=== PATIENT | female | born 1950 | race Caucasian/White ===

== ENCOUNTER → 2019-01-01 | Outpatient (CLI) | payer MEDICARE ==
[~2019-01-01] MED LIST: ACETAMINOPHEN-1 EAC1 PO; ACETAMINOPHEN650 M5; ASPIR 8181 MG PO; ASPIRIN325; B-121000 MCG; BACTRIM DS TAB1 EACH PO; CIPROFLOXACIN500 M1 PO; DOCUSATE SODIU100 MG; FLAGYL500 MG PO; FOLIC ACID1 MG; GLUCOPHAGE XR500 MG PO; HYDROCODON-ACE1 EAC7 PO; IBUPROFEN 200200 M1 PO; IBUPROFEN 800800 M1 PO; IRON325; KEFLEX500 MG PO; LEVOTHYROXIN0.025 MG PO; MOBIC7.5 MG PO; NORCO 5-325 TA1 EACH; NORCO 5-325 TA1 EACH PO; ONE-A-DAY WOMENS PO; OXYCODONE HCL5 M1; SYNTHROID25 MCG PO; TYLENOL325 MG PO; VITAMIN D 5050000 I1 PO; WOMEN'S 50+ DA1 EACH PO; XANAX 0.5 MG0.5 MG PO; XARELTO10 M1; ZOFRAN ODT4 MG PO
== END ==
LOC: M.RAD 09:01
DX: Z12.31 Encounter for screening mammogram for malignant neoplasm of breast (principal)

== ENCOUNTER 2019-12-15 07:50 | Observation (INO) | payer MEDICARE ==
[2019-12-15] VITALS (8 sets, daily range): BP systolic 129–173; BP diastolic 46–76
[~2019-12-15] VITALS: Ht 157.5 cm; Wt 90.7 kg
[~2019-12-15 07:50] MED LIST changes: -GLUCOPHAGE XR500 MG PO; -LEVOTHYROXIN0.025 MG PO; +METFORMIN HCL500 MG PO; +SYNTHROID50 MCG PO; -VITAMIN D 5050000 I1 PO; +VITAMIN D21250 MCG PO
[2019-12-15 09:01] LABS: HEMOGLOBIN 12.2 gm/dL (12.0-15.0); MCH 30.7 pg (26.0-34.0); MCV 90.3 fL (80.0-100.0); MPV 7.3 fl. (7.2-11.1); RBC 3.99 mil/uL (4.20-5.00); RDW-CV 13.5 % (10.5-14.5); WBC 6.4 thou/uL (4.0-11.0)
[2019-12-15 09:06] LABS: ANION GAP 8 mmol/L (7-16); BUN 11 mg/dL (7-18); CALCIUM 8.5 mg/dL (8.5-10.1); CHLORIDE 105 mmol/L (98-107); CO2 29 mmol/L (21-32); CREATININE 0.6 mg/dL (0.6-1.3); GLUCOSE 136 mg/dL (70-99); POTASSIUM 4.6 mmol/L (3.5-5.1); SODIUM 142 mmol/L (136-145)
[2019-12-15 09:15] LABS: ALBUMIN 3.5 g/dL (3.4-5.0); ALKALINE PHOSPHATASE 87 U/L (46-116); CHOLESTEROL 190 mg/dL (<200); HDL CHOLESTEROL 62 mg/dL (>40); LDL CHOLESTEROL 119 mg/dL (<100); SGOT 18 U/L (15-37); SGPT 26 U/L (30-65); TC:HDL 3.1 Ratio (Not establshd); TOTAL BILIRUBIN 0.4 mg/dL (<0.1-1.0); TOTAL PROTEIN 7.5 g/dL (6.4-8.2); TRIGLYCERIDE 46 mg/dL (<150); VLDL 9 mg/dL (<40)
[2019-12-15 09:18] LABS: SERUM ASSESSMENT Clear
[2019-12-15 10:50] LABS: APTT 25.2 Seconds (25.0-31.3)
--- NOTE | 2019-12-15 14:38 | EKG ---
[place] [address] ELECTROCARDIOGRAM REPORT Name: MIRIAM CHARLES Room: [address] M.R.#: [id number] Admission: 12/15/19 Attend Phys: Real Cochran MD Discharge: Date of : 50 Report #: [id number] THIS REPORT FOR: //name// [facility] Test Date: 2019-12-15 Test Time: 08:57:06 Pat Name: MIRIAM CHARLES Department: Room: [facility] Gender: F Accounts Payable Coordinator: : 1950 Requested By: Brock Cutler Order Number: [id number] Marquise MD: Real Cochran Measurements Intervals [place] Rate: 72 P: 49 [place]: 147 QRS: 6 QRSD: 78 T: 20 QT: 391 QTc: 428 Interpretive Statements Sinus rhythm Consider RVH or posterior infarct Compared to ECG 04/17/2016 10:32:22 Myocardial infarct finding now present Electronically Signed On 12-15-2019 14:37:58 AVIATION TECHNICAL SYSTEMS SPECIALIST by Real Cochran [email or web address] <ELECTRONICALLY SIGNED> By: Real Cochran MD, [facility] 12/15/19 1437 0857 0857 Real Cochran MD, [facility] /EPI
--- NOTE | 2019-12-15 14:41 | EKG ---
[place] [address] ELECTROCARDIOGRAM REPORT Name: MIRIAM CHARLES Room: [address] M.R.#: [id number] Admission: 12/15/19 Attend Phys: Real Cochran MD Discharge: Date of : 50 Report #: [id number] THIS REPORT FOR: //name// [facility] Test Date: 2019-12-15 Test Time: 13:30:22 Pat Name: MIRIAM CHARLES Department: Room: [facility] Gender: F Hosting Engineer: JUAN : 1950 Requested By: Real Cochran Order Number: [id number] Reading MD: Real Cochran Measurements Intervals [place] Rate: 66 P: 65 [place]: 147 QRS: 6 QRSD: 90 T: 2 QT: 412 QTc: 432 Interpretive Statements Sinus rhythm Abnormal R-wave progression, early transition Compared to ECG 04/17/2016 10:32:22 No significant changes Electronically Signed On 12-15-2019 14:41:00 ROLL TABLE OPERATOR by Real Cochran [email or web address] <ELECTRONICALLY SIGNED> By: Real Cochran MD, [facility] 12/15/19 1441 1330 29 Real Cochran MD, FACC /EPI
--- NOTE | 2019-12-15 16:04 | H ---
[address] [address] HISTORY AND PHYSICAL Name: MIRIAM CHARLES Tammy Room: [address] MSamuelRSamuel#: [id number] Admission: 12/15/19 Attend Phys: Real Cochran MD Discharge: Date of : 50 Report #: [id number] THIS REPORT FOR: //name// CC: Cruz Cutler DATE OF SERVICE: 12/15/2019 HISTORY OF PRESENT ILLNESS: The patient is a very pleasant 68-year-old female with diabetes. She has noted exertional chest pressure and pain between her shoulder blades. In this context, stress Cardiolite was ordered, and the patient walked for 6 minutes of a Anurag protocol, noting chest discomfort and dyspnea. She developed 1-1.[address] segment depression suggesting ischemia in the post-exercise phase and radionuclide scans revealed anteroapical ischemia. She has noted some diminution in her symptoms after backing off on her activity pattern. The patient's risk factors for coronary artery disease include diabetes. She denies hypercholesterolemia, hypertension, or family history of premature coronary artery disease. MEDICATIONS: Included aspirin, L-thyroxine, metformin which she has held for 48 hours, and a multivitamin. PAST MEDICAL HISTORY: Remarkable for diabetes, hypothyroidism, and weight excess. SOCIAL HISTORY: She is . She is a former smoker, but no longer does. REVIEW OF SYSTEMS: Remarkable for the following: GENERAL: She notes modest weight excess. ENDOCRINE: There is a history of treated hypothyroidism. MUSCULOSKELETAL: She notes exertional chest discomfort and dyspnea. PHYSICAL EXAMINATION: GENERAL: Reveals a moderately overweight middle-aged female. VITAL SIGNS: Blood pressure is 140/70, pulse rate is 68, and respirations are 18 per minute. NECK: Jugular venous pressure is normal. CHEST: Clear. CARDIAC: Exam reveals normal first and second heart sounds without rubs, murmurs, or gallops. ABDOMEN: Moderately obese. EXTREMITIES: Without edema with intact femoral, pedal, [place] [address] HISTORY AND PHYSICAL Name: MIRIAM CHARLES Room: [address] M.R.#: [id number] Admission: 12/15/19 Attend Phys: Real Cochran MD Discharge: Date of : 50 Report #: [id number] Review of the nuclear stress test demonstrates inducible anteroapical ischemia with concomitant ST-T changes suggesting ischemia. IMPRESSION: 1. Recent episodes of angina with exertion. 2. Abnormal nuclear stress test with a significant area of inducible anteroapical ischemia with concomitant EKG changes suggesting ischemia. 3. Diabetes mellitus. 4. Weight excess. 5. Hypothyroidism. RECOMMENDATIONS: Given the aforementioned clinical scenario with symptoms suggesting angina, which have been progressive, and abnormal nuclear stress test, I would recommend proceeding with cardiac catheterization to document the magnitude of coronary artery disease and prospects for subsequent therapeutic modification. <ELECTRONICALLY SIGNED> By: Brock Cutler MD, [facility] 12/15/19 1604 1137 1151John Jigar Cutler MD, [facility] /nt
--- NOTE | 2019-12-15 17:36 | H ---
[place] [address] HISTORY AND PHYSICAL Name: ROSAAnahyMIRIAM Tammy Room: [address] MSamuelRSamuel#: [id number] Admission: 12/15/19 Attend Phys: Real Cochran MD Discharge: Date of : 50 Report #: [id number] THIS REPORT FOR: //name// CC: Cruz Cutler DATE OF SERVICE: 12/15/2019 INDICATION: Progressive/unstable angina. HISTORY OF PRESENT ILLNESS: The patient is a very pleasant 69-year-old female with no prior cardiac history. Cardiac risk factors include dyslipidemia and type 2 diabetes mellitus. The patient has been having progressive symptoms of chest pressure, shortness of breath, dyspnea, fatigue and back pain. She had recently rejoined a gym where she noticed these symptoms for the past couple of months. The patient underwent noninvasive stress testing, but showed evidence of stress-induced ischemia involving the distal anterior wall and apex. She has preserved left ventricular systolic function. She denies any prior history of myocardial infarction or intervention. PAST MEDICAL HISTORY: 1. Type 2 diabetes mellitus. 2. Hypothyroidism. 3. Partial hysterectomy in 2015. 4. Total knee arthroplasty in 2011. SOCIAL HISTORY: The patient quit smoking remotely. She does not drink alcohol. FAMILY HISTORY: The patient's parents both had coronary artery disease, but lived to older ages. ALLERGIES: MOBIC. CURRENT MEDICATIONS: Aspirin 81 mg daily, vitamin D 1000 units daily, levothyroxine 50 mcg daily, metformin 1000 mg b.i.d., multivitamin 1 tablet daily. REVIEW OF SYSTEMS: The patient denies convulsions, seizures or focal paralysis. In general, there is no unexplained weight loss or fevers. She denies cough, sputum production or underlying lung disease. Cardiac as outlined above. She is not having nausea, vomiting, hematochezia or melena. She has hypothyroidism and diabetes. No prior history of bleeding disorder or cancer. 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 She denies any skin conditions. She wears glasses without acute visual loss. She [place] [address] HISTORY AND PHYSICAL Name: MIRIAM CHARLES Room: [address]#: [id number] Admission: 12/15/19 Attend Phys: Real Cochran MD Discharge: Date of : 50 Report #: [id number] PHYSICAL EXAMINATION: VITAL SIGNS: Stable. Blood pressure was 142/76, pulse is 62 and regular. GENERAL: This is a pleasant lady in no distress. Mood and affect appropriate. HEENT: The patient is wearing glasses. Extraocular muscles intact. Mucous membranes moist. NECK: Shows no jugular venous distention. There are no carotid bruits. CHEST: Reveals clear lung beltran without wheezes or rales. CARDIOVASCULAR: Reveals a regular rhythm with normal S1 and S2. I do not appreciate gallop or murmur. ABDOMEN: Reveals normal bowel sounds. The abdomen is soft and nontender. EXTREMITIES: Shows no edema. Peripheral pulses 2+ and easily palpable. SKIN: Dry. IMPRESSION AND RECOMMENDATIONS: 1. Chest pain consistent with progressive/unstable angina. We will proceed with invasive evaluation and possible intervention. 2. Diabetes. Resume metformin 2 days after catheterization. 3. Mild dyslipidemia. Recommend initiation of statin agent for goal LDL of 70 or less. 4. Hypothyroidism, on replacement therapy. <ELECTRONICALLY SIGNED> By: Real Cochran MD, FACC 12/15/19 1736 0950 1011Miccrispin Cochran MD, FACC /nt
[2019-12-16] VITALS: BP 132/64
[2019-12-16 03:44] VITALS: BP 123/51
[2019-12-16 05:28] LABS: HEMOGLOBIN 11.7 gm/dL (12.0-15.0); MCHC 34.3 g/dL (28.0-37.0); MCV 90.3 fL (80.0-100.0); MPV 7.9 fl. (7.2-11.1); RBC 3.77 mil/uL (4.20-5.00); RDW-CV 13.2 % (10.5-14.5); WBC 6.8 thou/uL (4.0-11.0)
[2019-12-16 06:28] LABS: ALBUMIN 3.2 g/dL (3.4-5.0); CALCIUM 8.5 mg/dL (8.5-10.1); CREATININE 0.6 mg/dL (0.6-1.3); TOTAL BILIRUBIN 0.5 mg/dL (<0.1-1.0); TOTAL PROTEIN 7.1 g/dL (6.4-8.2)
[2019-12-16 08:00] VITALS: BP 152/61
[2019-12-16 09:06] VITALS: BP 129/46
[2019-12-16 12:19] VITALS: BP 143/74
[2019-12-16] MEDS ORDERED: EFFIENT10 MG PO (12:30)
[2019-12-16] MEDS ORDERED: LIPITOR 20 MG T20 M1 PO (12:31)
--- NOTE | 2019-12-16 15:04 | EKG ---
[place] [address] ELECTROCARDIOGRAM REPORT Name: MIRIAM CHARLES Room: [address] M.R.#: [id number] Admission: 12/15/19 Attend Phys: Real Cochran MD Discharge: 12/16/19 Date of : 50 Report #: [id number] THIS REPORT FOR: //name// [facility] Test Date: 2019-12-16 Test Time: 08:09:04 Pat Name: MIRIAM TRINHVIVAnahy Department: Room: [facility] Gender: F Hose Operator: : 1950 Requested By: Real Cochran Order Number: [id number] Reading MD: Brock Cutler Measurements Intervals [place] Rate: 78 P: 43 [place]: 146 QRS: 0 QRSD: 77 T: 29 QT: 373 QTc: 425 Interpretive Statements Sinus rhythm Abnormal R-wave progression, early transition Compared to ECG 12/15/2019 13:30:22 No significant changes Electronically Signed On 12-16-2019 15:03:22 MANAGER ORACLE RETAIL by Brock Cutler [email or web address] <ELECTRONICALLY SIGNED> By: Brock Cutler MD, [facility] 12/16/19 1503 0809 0809 Brock Cutler MD, FACC /EPI
--- NOTE | 2019-12-17 14:40 | CARD ---
[address] [address] CARDIAC CATH REPORT Name: ROSAMIRIAM Higginbotham Room: [address] Anabel Pathak#: [id number] Admission: 12/15/19 Attend Phys: Real Cochran MD Discharge: 12/16/19 Date of : 50 Report #: [id number] THIS REPORT FOR: //name// APPROVED REPORT Study performed: 12/15/2019 11:14:22 Patient Details The patient is a 69 year-old female Event Personnel Real Cochran Field Pipelines Supervisor, Sergei Tilley POTASH FLAKER Monitor, Jadon Abraham POTASH FLAKER Scrub, Gabriella Garvey RN RN, Brock Cutler Director Consumer Affairs Procedures Performed Left heart catheterization Selective coronary arteriography and percutaneous coronary intervention to the LAD Indication Positive stress test Risk Factors Hypercholesterolemia, Hypertension Admission/Lab Medications/Medications given during procedure Angiomax IV 13.5 ml, Angiomax Drip IV 31.51 ml per hr Procedure Narrative The patient was brought electively to the Cardiac Catheterization Laboratory and was prepped and draped in a sterile manner. The right femoral was infiltrated with 2% Lidocaine subcutaneous anesthesia. A 6fr Ultimum Sheath sheath was inserted into the right femoral artery. Coronary angiography was performed using coronary diagnostic catheters. The right coronary system was accessed and visualized with a Diagnostic - JR4 catheter. The left coronary system was accessed and visualized with a Diagnostic - JL4 catheter. The left ventricle was accessed and visualized with a Diagnostic - Staight PIG catheter. Closure device was deployed with a Fr Angioseal STS 6Fr. The patient tolerated the procedure well and there were no complications associated with the procedure. Intraoperative Conscious Sedation Sedation start time: 1154 Case end Time: 1259 [place] [address] CARDIAC CATH REPORT Name: MIRIAM CHARLES Room: [address]#: [id number] Admission: 12/15/19 Attend Phys: Real Cochran MD Discharge: 12/16/19 Date of : 50 Report #: [id number] Fentanyl 50 mcg Versed 1 mg Fluoro Time: 22.3 minutes Dose: DAP 496125 cGycm2 2575 mGy Contrast Type and Amount: Visipaque 240 ml Coronary Angiography The patient's coronary anatomy is left dominant. Diagnostic Cath Left Main 0% narrowing LAD 40% ostial narrowing with 90% heavily calcified proximal stenosis and 75% mid vessel stenosis Circumflex 40% tubular mid vessel narrowing Right Coronary Small nondominant vessel with 50% proximal narrowing Hemodynamics The aortic pressure is 152/60 mmHg with a mean of 101 mmHg. The left ventricular pressure is 146/0 mmHg with a mean of mmHg. The left ventricular end diastolic pressure is 22 mmHg. PCI Technique Lesion Anticoagulation was achieved with Angiomax. Patient was preloaded with Angiomax Drip IV 31.51 ml per hr. Percutaneous coronary intervention was performed on the proximal left anterior descending artery segment. The lesion stenosis prior to intervention was 90% with HANNAH 3 flow. A 6F XB LAD 3.5 Guide Catheter was used to engage the ostium. A IG: BMW 300cm Interventional Guidewire was used to cross the lesion. BALLOON DILATION A Balloon catheter Mini Trek RX 1.5 X 8 was inserted and inflated up to 18.00atm for 11seconds. Additional Inflation: 18.00atm for 11seconds. Finecross and Telescope utilized STENT DEPLOYMENT A drug-eluting stent Hamzah RX Stent 2.11V61xy was inserted and inflated up to 14atm for 15seconds. POST STENT DEPLOYMENT BALLOON DILATION A Balloon catheter NC Trek RX 2.5 X 8 was inserted and inflated up to 18atm for 10seconds. COMMENTS The intervention was complex by virtue of severe [place] [address] CARDIAC CATH REPORT Name: MIRIAM CHARLES Room: [address]#: [id number] Admission: 12/15/19 Attend Phys: Real Cochran MD Discharge: 12/16/19 Date of : 50 Report #: [id number] proximal LAD lesion requiring use of a telescope guide in a guide system required for traversing the lesion with a 1.5 x 8 mini trek catheter larger balloons and subsequently a drug-eluting stent BALLOON DILATION A Balloon catheter was inserted and inflated up to 14atm for 14seconds. Additional Inflation: 18.00atm for 12seconds. Additional Inflation: 14.00atm for 7seconds. 14 greg for 12 sec STENT DEPLOYMENT A stent Cascade RX Stent 2.37U90ni was inserted and inflated up to 14.00atm for 15seconds. Additional Inflation: 14.00atm for 8seconds. POST STENT DEPLOYMENT BALLOON DILATION A Balloon catheter NC Trek RX 2.5 X 8 was inserted and inflated up to 16.00atm for 12seconds. Additional Inflation: 18.00atm for 5seconds. Additional Inflation: 14.00atm for 8seconds. 12 greg for 4 sec Conclusion #1 significant coronary artery disease characterized by the following: A 40% ostial 90% heavily calcified proximal and 75% mid LAD stenosis B 40% tubular mid circumflex narrowing C small nondominant right coronary artery with 50% proximal narrowing #2 moderate elevation of left ventricular end-diastolic pressure at rest #3 successful percutaneous coronary intervention with deployment of drug-eluting stent spanning 90% heavily calcified proximal and 75% mid LAD stenoses with 10% residual narrowing and HANNAH-3 flow to the distal vessel Recommendations Cardiac Risk Reduction Program Aggressive Medical Therapy Medic[place] [address] CARDIAC CATH REPORT Name: MIRIAM CHARLES Room: [address] Anabel Pathak#: [id number] Admission: 12/15/19 Attend Phys: Real Cochran MD Discharge: 12/16/19 Date of : 50 Report #: [id number] Aspirin (any) Prasugrel Diagnostic Cath Approved by: Real Cochran MD Date/Time: 12/17/2019 14:36:54 <ELECTRONICALLY SIGNED> By: Brock Cutler MD, FACC 12/17/19 1440 1440 1440Jolele Cutler MD, FACC /INF
--- NOTE | 2019-12-18 13:45 | D ---
[facility] [address] [place] [address] DISCHARGE SUMMARY Name: MIRIAM CHARLES Room: [address] Anabel Pathak#: [id number] Admission: 12/15/19 Attend Phys: Real Cochran MD Discharge: 12/16/19 Date of : 50 Report #: [id number] THIS REPORT FOR: //name// CC: Cruz Cochran DATE OF SERVICE: 12/16/2019 PROCEDURES DURING HOSPITALIZATION: 1. Cardiac catheterization. 2. Coronary angiography. 3. Percutaneous coronary intervention to the proximal to mid left anterior descending coronary artery. HOSPITAL COURSE: The patient was brought to the hospital for elective coronary angiography after an abnormal stress test. On catheterization, she was found to have sequential 90% and 80% proximal to mid left anterior descending stenoses. The patient underwent percutaneous coronary intervention with a single 34 mm drug-eluting stent placed from the proximal to mid left anterior descending coronary artery with excellent result. The patient had mild nonocclusive plaquing noted, otherwise. The patient's hospital course was unremarkable. DISPOSITION: The patient will follow up on 12/29/2019 in the Cardiology office. DISCHARGE MEDICATIONS: 1. Aspirin 81 mg daily. 2. Effient 10 mg daily. 3. Levothyroxine 50 mcg daily. 4. Atorvastatin 20 mg daily. 5. Metformin 1000 mg b.i.d. 6. Multivitamin 1 tablet daily. 7. Vitamin D 1000 units daily. <ELECTRONICALLY SIGNED> By: Real Cochran MD, FACC 12/18/19 1345 1237 1248Miccrispin Cochran MD, FACC /nt
== END 2019-12-16 13:22 | disposition home or self-care (01) ==
LOC: M.CL 07:50 → M.TBA-CV 13:11 → M.2W 16:50
PROVIDERS: Internal Medicine; ADMIT Internal Medicine Cardiovascular Disease
DX: I20.9 Angina pectoris, unspecified (principal); E03.9 Hypothyroidism, unspecified; E11.9 Type 2 diabetes mellitus without complications; R63.5 Abnormal weight gain; Z87.891 Personal history of nicotine dependence

== ENCOUNTER 2021-02-19 07:26 | Inpatient (IN) | payer MEDICARE ==
[~2021-02-19] VITALS: Ht 157.5 cm; Wt 83.3 kg
[~2021-02-19 07:26] MED LIST changes: +EFFIENT10 MG PO; +LIPITOR 20 MG T20 M1 PO
[2021-02-19 07:35] VITALS: BP 191/72
[2021-02-19 08:12] LABS: CALCIUM 8.8 mg/dL (8.5-10.1); CREATININE 0.5 mg/dL (0.6-1.3); POTASSIUM 4.1 mmol/L (3.5-5.1)
[2021-02-19 08:17] LABS: ALBUMIN 3.8 g/dL (3.4-5.0); TOTAL BILIRUBIN 0.7 mg/dL (<0.1-1.0)
[2021-02-19 08:20] LABS: ABSOLUTE LYMPHOCYTES 1.7 thou/uL (0.8-5.3); BASOPHILS 0.3 %; HEMOGLOBIN 11.9 gm/dL (12.0-15.0); PLATELET COUNT* 345 thou/uL (150-400); RBC 4.01 mil/uL (4.20-5.00); RDW-CV 14.3 % (10.5-14.5)
[2021-02-19 08:22] LABS: ABSOLUTE MONOCYTES 0.4 thou/uL (0.0-1.2); ABSOLUTE NEUTROPHILS 3.8 thou/uL (1.6-8.1); EOSINOPHILS 0.4 %; HEMATOCRIT 36.2 % (37.0-47.0); LYMPHOCYTES 28.5 %; MCH 29.7 pg (26.0-34.0); MCV 90.1 fL (80.0-100.0); MONOCYTES 7.1 %; MPV 7.3 fl. (7.2-11.1); NUCLEATED RBCS 0 /100WBC; POLYS 63.7 %
[2021-02-19 10:57] VITALS: BP 138/69
[2021-02-19 16:30] VITALS: BP 164/65
[2021-02-19 20:14] VITALS: BP 129/53
[2021-02-20] VITALS (15 sets, daily range): BP systolic 103–157; BP diastolic 50–77
[2021-02-20 05:32] LABS: CHOLESTEROL 106 mg/dL (<200); HDL CHOLESTEROL 57 mg/dL (>40); LDL CHOLESTEROL 39 mg/dL (<100); SERUM ASSESSMENT CLEAR; TC:HDL 1.9 Ratio (Not establshd); TRIGLYCERIDE 54 mg/dL (<150); TROPONIN-I LEVEL <0.06 ng/mL (<0.06); VLDL 11 mg/dL (<40)
--- NOTE | 2021-02-20 10:41 | CON ---
[address] [address] CONSULTATION Name: ARACELIMIRIAM M Room: [address] M.R.#: [id number] Admission: 02/20/21 Attend Phys: Maris Blandon MD Discharge: Date of : 50 Report #: [id number] THIS REPORT FOR: cc: [facility] - Clinic physician unknown [facility] - Clinic physician unknown ~ Cruz Tripathi MD [facility] DATE OF SERVICE: 02/19/2021 CARDIOLOGY CONSULTATION HISTORY OF PRESENT ILLNESS: The patient a 70-year-old female who I was asked to see in the hospital today after she complained of back pain. The patient states that a year ago, she was having some back pain and was admitted to [facility]. She had a single coronary stent placed. She has done well since that time. Apparently, this year, they stopped the antiplatelet drug because it has been 1 year since the stent was placed. She is not very active at this time. She was doing well until this morning, she woke up with pain in her back. She felt somewhat nauseated and vomited. She felt somewhat diaphoretic. She drove herself to the Emergency Room and admitted for further evaluation and treatment. She notes she has had the back pain off and on. She denied any trauma to her back. The pain is not related to lifting, bending over. Denied any fever or cough. She denied the pain radiating to her arms. She denies any exertional dyspnea, palpitations, or syncope. PAST MEDICAL HISTORY: In September, she fell and fractured her left leg requiring surgery. She has had both knees replaced appendectomy, hysterectomy, hypertension, diabetes, hyperlipidemia. CURRENT MEDICATIONS: Consists of the following list: She is on Synthroid, aspirin, metformin, atorvastatin. She is no longer on Effient. ALLERGIES: SHE HAS A PREVIOUS INTOLERANCE TO MOBIC. FAMILY HISTORY: Her mother had heart disease. SOCIAL HISTORY: She is . She lives in [place]. No smoking or alcohol abuse. REVIEW OF SYSTEMS: She has had no history of stroke, asthma, liver disease, kidney disease, cancer or skin problems, psychiatric illness. She does wear glasses. PHYSICAL EXAMINATION: GENERAL: Revealed an elderly female, who appeared [place] [address] CONSULTATION Name: MIRIAM CHARLES Room: [address]#: [id number] Admission: 02/20/21 Attend Phys: Maris Blandon MD Discharge: Date of : 50 Report #: [id number] VITAL SIGNS: She had a blood pressure of 130/70, pulse 60. She is afebrile. HEENT: She was anicteric. Conjunctivae pink. Mucous membranes are moist. NECK: Veins nondistended. No carotid bruits. Neck supple. CHEST: Clear to auscultation. CARDIOVASCULAR: Regular rate without murmur or rub. ABDOMEN: Soft. EXTREMITIES: Had no edema. Dorsalis pedis pulse 2+. SKIN: Cool and dry. NEUROLOGIC: Nonfocal. LABORATORY DATA: ECG showed a sinus rhythm without ST- or T-wave change noted. Her workup in the Emergency Room today, sodium 135, potassium 4.1, creatinine 0.5, glucose 118. Her liver function studies were normal. Troponins were all 0.06. BNP was not performed. Her white blood cell count 6.0, hemoglobin 11.9. The patient had a CT scan of the chest using a PE protocol today that showed no pulmonary embolus. Her chest x-ray showed normal heart size, clear lung beltran. IMPRESSION AND RECOMMENDATIONS: 1. Back pain. Possible angina. Recommend repeat cardiac catheterization. 2. Previous stent. Recommend repeat cardiac catheterization. I would continue aspirin a day. 3. Hypertension. Recommend medications including NICOLE inhibitor. 4. Hyperlipidemia. The patient is on a statin drug. 5. Diabetes. The patient is on oral medications. <ELECTRONICALLY SIGNED> By: Cruz Tripathi MD, FACC 02/20/21 1041 1216 1235Davianiket Tripathi MD, FACC /nt
--- NOTE | 2021-02-20 14:11 | 2DMMODE ---
[place] [address] 2 D/M-MODE ECHOCARDIOGRAM Name: MIRIAM CHARLES Room: [address] IN [facility]#: [id number] Admission: 02/20/21 Attend Phys: Maris Blandon, Discharge: Date of : 50 Date of Service: 02/20/21 1411 Report #: [id number] THIS REPORT FOR: cc: [facility] - Clinic physician unknown [facility] - Clinic physician unknown Brock Cutler MD [facility] ~ APPROVED REPORT Study performed: 02/20/2021 10:25:25 EXAM: Comprehensive 2D, Doppler, and color-flow Echocardiogram Patient Location: In-Patient Room #: [facility] Status: routine BSA: 1.78 HR: 70 bpm BP: 112/52 mmHg Rhythm: NSR Other Information Study Quality: Good Indications Chest Pain 2D Dimensions IVSd: 10.85 (7-11mm) LVOT Diam: 18.87 (18-24mm) LVDd: 42.30 mm PWd: 10.05 (7-11mm) Ascending Ao: 31.21 (22-36mm) LVDs: 24.71 (25-40mm) Aortic Root: 28.67 mm Volumes Left Atrial Volume (Systole) LA ESV Index: 27.80 mL/m2 Aortic Valve AoV Peak Jae.: 1.77 m/s AO Peak Gr.: 12.48 mmHg LVOT Max P.36 mmHg AO Mean Gr.: 6.98 mmHg LVOT Mean P.57 mmHg LVOT Max V: 1.36 m/s AO V2 VTI: 35.85 cm LVOT Mean V: 0.87 m/s FABIENNE (VTI): 2.30 cm2 LVOT V1 VTI: 29.42 [place] [address] 2 D/M-MODE ECHOCARDIOGRAM Name: MIRIAM CHARLES Room: [address] IN ..#: [id number] Admission: 02/20/21 Attend Phys: Maris Blandon, Discharge: Date of : 50 Date of Service: 02/20/21 1411 Report #: [id number] Mitral Valve E/A Ratio: 1.02 MV Decel. Time: 234.13 ms MV E Max Jae.: 0.90 m/s MV PHT: 67.90 ms MVA (PHT): 3.24 cm2 TDI E/Lateral E': 8.18 E/Medial E': 9.00 Medial E' Jae.: 0.10 m/s Lateral E' Jae.: 0.11 m/s Pulmonary Valve PV Peak Jae.: 0.85 m/s PV Peak Gr.: 2.87 mmHg Tricuspid Valve RAP Estimate: 5.00 mmHg TR Peak Gr.: 24.30 mmHg RVSP: 29.00 mmHg PA Pressure: 29.00 mmHg Left Ventricle The left ventricle is normal size. There is normal LV segmental wall motion. There is normal left ventricular wall thickness. Left ventricular systolic function is normal. The left ventricular ejection fraction is within the normal range. LVEF is 60-65%. The left ventricular diastolic function is normal. Right Ventricle The right ventricle is normal size. The right ventricular systolic function is normal. Atria The left atrium size is normal. The right atrium size is normal. Aortic Valve The aortic valve is normal in structure. No aortic regurgitation is present. There is no aortic valvular stenosis. Mitral Valve The mitral valve is normal in structure. Trace mitral regurgitation. No evidence of mitral valve stenosis. Tricuspid Valve The tricuspid valve is normal in structure. Mild tricuspid regurgitation. [place] [address] 2 D/M-MODE ECHOCARDIOGRAM Name: ZIGGYKADYMIRIAM Munoz Room: [address] [place] [facility]#: [id number] Admission: 02/20/21 Attend Phys: Maris Blandon, Discharge: Date of : 50 Date of Service: 02/20/21 1411 Report #: [id number] Pulmonic Valve The pulmonary valve is normal in structure. Trace pulmonic regurgitation. Great Vessels The aortic root is normal in size. IVC is normal in size and collapses >50% with inspiration. Pericardium There is no pericardial effusion. <Conclusion> The left ventricle is normal size. There is normal left ventricular wall thickness. Left ventricular systolic function is normal. The left ventricular ejection fraction is within the normal range. LVEF is 60-65%. The right ventricle is normal size. The left atrium size is normal. The aortic valve is normal in structure. The mitral valve is normal in structure. The tricuspid valve is normal in structure. Mild tricuspid regurgitation. No pulmonary hypertension. IVC is normal in size and collapses >50% with inspiration. There is no pericardial effusion. There is normal LV segmental wall motion. <ELECTRONICALLY SIGNED> By: Brock Cutler MD, FACC 02/20/21 141 10 10 Brock Cutler MD, FACC /INF
--- NOTE | 2021-02-20 17:32 | EKG ---
[place] [address] ELECTROCARDIOGRAM REPORT Name: MIRIAM CHARLES Room: [address] IN M.R.#: [id number] Admission: 02/20/21 Attend Phys: Maris Blandon, Discharge: Date of : 50 Date of Service: 02/19/21 0746 Report #: [id number] THIS REPORT FOR: //name// [facility] ED Test Date: 2021-02-19 Test Time: 07:46:04 Pat Name: MIRIAM TRINHKADY Department: Room: [facility] Gender: F Title Checker: JSunil : 1950 Requested By: Joauqin Hernandez Order Number: [id number] MD: Brock Cutler Measurements Intervals [place] Rate: 60 P: 40 NM: 154 QRS: 6 QRSD: 84 T: 17 QT: 407 QTc: 407 Interpretive Statements Sinus rhythm Low voltage, precordial leads Abnormal R-wave progression, early transition LVH by voltage Compared to ECG 12/16/2019 08:09:04 Low QRS voltage now present Left ventricular hypertrophy now present Electronically Signed On 02-20-2021 17:32:29 CDT by Brock Cutler [email or web address] <ELECTRONICALLY SIGNED> By: Brock Culter MD, [facility] 02/20/21 1732 0746 Brock Cutler MD, [facility] /EPI
--- NOTE | 2021-02-20 17:33 | EKG ---
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1885 : 1950 Requested By: Maris Blandon Order Number: [id number] Reading MD: Brock Cutler Measurements Intervals [place] Rate: 54 P: 54 WV: 152 QRS: 44 QRSD: 90 T: 48 QT: 450 QTc: 427 Interpretive Statements Sinus rhythm Low voltage, precordial leads Compared to ECG 02/19/2021 07:46:04 Left ventricular hypertrophy no longer present Electronically Signed On 02-20-2021 17:33:34 CDT by Brock Cutler [email or web address] <ELECTRONICALLY SIGNED> By: Brock Cutler MD, [facility] 02/20/21 1733 1246 1246 Brock Cutler MD, [facility] /EPI
--- NOTE | 2021-02-20 17:36 | EKG ---
[place] [address] ELECTROCARDIOGRAM REPORT Name: MIRIAM CHARLES Room: [address] ADM IN M.R.#: [id number] Admission: 02/20/21 Attend Phys: Maris Blandon, Discharge: Date of : 50 Date of Service: 02/20/21 0847 Report #: [id number] THIS REPORT FOR: //name// 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: : 1950 Requested By: Cruz Tripathi Order Number: [id number] Reading MD: Brock Cutler Measurements Intervals [place] Rate: 77 P: 46 MA: 143 QRS: 8 QRSD: 81 T: 24 QT: 376 QTc: 426 Interpretive Statements Sinus rhythm Abnormal R-wave progression, early transition Compared to ECG 02/19/2021 12:46:29 No significant changes Electronically Signed On 02-20-2021 17:36:20 CDT by Brock Cutler [email or web address] <ELECTRONICALLY SIGNED> By: Brock Cutler MD, [facility] 02/20/21 1736 0847 0847 Brock Cutler MD, [facility] /EPI
[2021-02-21] VITALS: BP 130/58
[2021-02-21 04:09] VITALS: BP 139/52
[2021-02-21 04:46] LABS: ALBUMIN 2.8 g/dL (3.4-5.0); ALKALINE PHOSPHATASE 75 U/L (46-116); ANION GAP 9 mmol/L (7-16); BUN 5 mg/dL (7-18); CHLORIDE 110 mmol/L (98-107); CO2 24 mmol/L (21-32); CREATININE 0.4 mg/dL (0.6-1.3); GLUCOSE 85 mg/dL (70-99); MAGNESIUM 1.8 mg/dL (1.8-2.4); POTASSIUM 3.2 mmol/L (3.5-5.1); SGOT 20 U/L (15-37); SGPT 23 U/L (30-65); SODIUM 143 mmol/L (136-145); TOTAL BILIRUBIN 0.7 mg/dL (<0.1-1.0); TOTAL PROTEIN 6.3 g/dL (6.4-8.2); TROPONIN-I LEVEL <0.06 ng/mL (<0.06)
[2021-02-21 04:51] LABS: HEMATOCRIT 28.7 % (37.0-47.0); MCH 30.5 pg (26.0-34.0); MCV 89.6 fL (80.0-100.0); MPV 7.5 fl. (7.2-11.1); RBC 3.2 mil/uL (4.20-5.00); RDW-CV 14.1 % (10.5-14.5); WBC 5.8 thou/uL (4.0-11.0)
[2021-02-21 04:58] LABS: HEMOGLOBIN 9.8 gm/dL (12.0-15.0)
[2021-02-21 07:58] VITALS: BP 143/82
[2021-02-21] MEDS ORDERED: BENAZEPRIL HCL5 MG PO (08:30)
[2021-02-21] MEDS ORDERED: EFFIENT10 MG PO (08:30)
[2021-02-21 11:20] VITALS: BP 143/82
[2021-02-21 12:03] VITALS: BP 143/82
--- NOTE | 2021-02-21 13:03 | EKG ---
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: [id number] : 1950 Requested By: Brock Cutler Order Number: [id number] Reading MD: Brock Cutler Measurements Intervals [place] Rate: 77 P: 26 DC: 139 QRS: 18 QRSD: 78 T: 43 QT: 382 QTc: 433 Interpretive Statements Sinus rhythm Abnormal R-wave progression, early transition Compared to ECG 02/20/2021 08:47:11 No significant changes Electronically Signed On 02-21-2021 13:03:03 CDT by Brock Cutler [email or web address] <ELECTRONICALLY SIGNED> By: Brock Cutler MD, [facility] 02/21/21 1303 0531 0531 Brock Cutler MD, [facility] /EPI
--- NOTE | 2021-02-21 13:49 | CARD ---
[address] [address] CARDIAC CATH REPORT Name: MIRIAM CHARLES Room: [address]#: [id number] Admission: 02/20/21 Attend Phys: Maris Blandon MD Discharge: 02/21/21 Date of : 50 Report #: [id number] THIS REPORT FOR: cc: [facility] - Clinic physician unknown [facility] - Clinic physician unknown ~ Brock Cutler MD [facility] APPROVED REPORT Study performed: 02/20/2021 15:57:57 Patient Details Patient Status: In-Patient Room #: The patient is a 70 year-old female Event Personnel Brock Cutler Recruit Instructor, Joselin Cruz RN Tapeman, Sergei Tilley SECURITY SME Scrub, Lisseth Samuel RTShane Monitor Procedures Performed Art Access - R femoral artery , Left Heart Cath w/or w/o Coronaries LHC , GORDY Place w/wo Plasty Single LAD , Hemostasis w/ Angioseal Indication Unstable angina Risk Factors Hypercholesterolemia Previous Procedures/Diagnoses Previous PCI Admission/Lab Medications/Medications given during procedure Angiomax IV 13 ml, Angiomax Drip IV 29.05 ml per hr, Angiomax Drip IV 4 ml per hr, Effient PO 60 mg, Aspirin PO 162 mg Procedure Narrative The patient was brought electively to the Cardiac Catheterization Laboratory and was prepped and draped in a sterile manner. The right femoral was infiltrated with 2% Lidocaine subcutaneous anesthesia. IV conscious sedation was used throughout procedure with appropriate monitoring and was performed in the presence of a registered nurse who was an independent trained observer other than the physician performing the procedure. A [place] 6 [place] [address] CARDIAC CATH REPORT Name: MIRIAM CHARLES Room: [address]#: [id number] Admission: 02/20/21 Attend Phys: Maris Blandon MD Discharge: 02/21/21 Date of : 50 Report #: [id number] the right femoral artery. Coronary angiography was performed using coronary diagnostic catheters. The right coronary system was accessed and visualized with a 6F 3DRC catheter. The left coronary system was accessed and visualized with a 6F JL4 catheter. The left ventricle was accessed and visualized with a 6F Pigtail catheter. Left ventricular/Aortic Valve gradient assessed via catheter pullback. Left ventriculogram was performed in OROZCO projection. Pre-demployment femoral angiogram was performed . Closure device was deployed with a 6 Fr Angioseal STS. The patient tolerated the procedure well and there were no complications associated with the procedure. There was no hematoma. Intraoperative Conscious Sedation Sedation start time: 16:22 Case end Time: 17:09 Fentanyl 25 mcg Versed 2 mg Fluoro Time: 8.1 minutes Dose: DAP 88047 cGycm2 997 mGy Contrast Type and Amount: Omnipaque 200 ml Diagnostic Cath LAD 30% ostial narrowing with 90% proximal in-stent restenosis and 30% mid vessel narrowing Circumflex Large dominant vessel with 40% mid vessel narrowing Right Coronary Small nondominant vessel which appears normal Left Ventriculography The left ventricle is normal in size with normal contractility. The left ventricular ejection fraction is estimated to be 65%. Left ventricular wall motion abnormalities are not present. There is no mitral insufficiency. Hemodynamics The aortic pressure is 96/44 mmHg with a mean of 64 mmHg. The left ventricular pressure is 97/-2 mmHg with a mean of mmHg. The left ventricular end diastolic pressure is 5 mmHg. There was no gradient across the aortic valve upon pullback. PCI Technique Lesion Anticoagulation was achieved with Angiomax. Patient was preloaded with Angiomax IV 13 ml. Percutaneous coronary intervention was performed on the proximal left anterior descending artery segment. The lesion stenosis prior to intervention was 90% with HANNAH 3 flow. A 6FR XB LAD 3.5 Guide Catheter was used to engage [place] [address] CARDIAC CATH REPORT Name: MIRIAM CHARLES Room: [address] IN M.R.#: [id number] Admission: 02/20/21 Attend Phys: Maris Blandon MD Discharge: 02/21/21 Date of : 50 Report #: [id number] 190cm Interventional Guidewire was used to cross the lesion. BALLOON DILATION A Balloon catheter NC Euphora 2.5x8 was inserted and inflated up to 18.00atm for 9seconds. Additional Inflation: 20.00atm for 7seconds. STENT DEPLOYMENT A drug-eluting stent Hamzah RX Stent 2.25X8mm was inserted and inflated up to 18.00atm for 10seconds. Additional Inflation: 21.00atm for 7seconds. Additional Inflation: 22.00atm for 5seconds. Final angiography reveals 0 % stenosis with HANNAH 3 flow. Conclusion 1. Significant coronary artery disease characterized by the following: A 30% ostial LAD stenosis with 90% proximal in-stent restenosis and 30% mid vessel narrowing B 40% narrowing in the midportion of the large dominant circumflex C normal small nondominant right coronary artery 2. Normal left ventricular systolic function, estimated ejection fraction being 65% 3. Normal left-sided hemodynamic study 4. Successful PCI with deployment of a drug-eluting stent at the site of 90% focal proximal LAD in-stent restenosis with 0% residual narrowing and HANNAH-3 flow to the distal vessel Recommendations Cardiac Risk Reduction Program Aggressive Medical Therapy Medications Administered Aspirin (any) [place] [address] CARDIAC CATH REPORT Name: MIRIAM CHARLES Room: [address] IN M.R.#: [id number] Admission: 02/20/21 Attend Phys: Maris Blandon MD Discharge: 02/21/21 Date of : 50 Report #: [id number] Diagnostic Cath Approved by: Brock Cutler MD Date/Time: 02/21/2021 13:47:55 <ELECTRONICALLY SIGNED> By: Brock Cutler MD, [facility] 02/21/21 1349 1349 1349Jolele Cutler MD, FAC /INF
== END 2021-02-21 12:40 | disposition home or self-care (01) | DRG 247 ==
LOC: M.ERS 07:26 → M.TBA-ER 09:51 → M.2W 11:22
PROVIDERS: Emergency Medicine; Internal Medicine Cardiovascular Disease; ADMIT Internal Medicine; ATTEND Internal Medicine
PROC: 027034Z Dilation of Coronary Artery, One Artery with Drug-eluting Intraluminal Device, Percutaneous Approach (ICD-10-PCS; principal; 2021-02-20)
PROC: B2151ZZ Fluoroscopy of Left Heart using Low Osmolar Contrast (ICD-10-PCS; principal; 2021-02-20)
PROC: 4A023N7 Measurement of Cardiac Sampling and Pressure, Left Heart, Percutaneous Approach (ICD-10-PCS; principal; 2021-02-20)
PROC: B2111ZZ Fluoroscopy of Multiple Coronary Arteries using Low Osmolar Contrast (ICD-10-PCS; principal; 2021-02-20)
DX: I25.119 Atherosclerotic heart disease of native coronary artery with unspecified angina pectoris (principal); T82.855A Stenosis of coronary artery stent, initial encounter; E11.9 Type 2 diabetes mellitus without complications; I10 Essential (primary) hypertension; E03.9 Hypothyroidism, unspecified; E78.5 Hyperlipidemia, unspecified; Y83.8 Other surgical procedures as the cause of abnormal reaction of the patient, or of later complication, without mention of misadventure at the time of the procedure; Z96.652 Presence of left artificial knee joint; Z20.822 Contact with and (suspected) exposure to COVID-19; Z82.49 Family history of ischemic heart disease and other diseases of the circulatory system; Z90.711 Acquired absence of uterus with remaining cervical stump; Z79.82 Long term (current) use of aspirin; Z79.899 Other long term (current) drug therapy; Z95.5 Presence of coronary angioplasty implant and graft; Z90.49 Acquired absence of other specified parts of digestive tract; I25.2 Old myocardial infarction; Z88.8 Allergy status to other drugs, medicaments and biological substances; Y92.89 Other specified places as the place of occurrence of the external cause

== ENCOUNTER 2021-02-28 14:11 | Inpatient (IN) | payer MEDICARE ==
[~2021-02-28] VITALS: Ht 157.5 cm; Wt 76.7 kg
[~2021-02-28 14:11] MED LIST changes: +BENAZEPRIL HCL5 MG PO
[2021-02-28 14:16] VITALS: BP 169/86
[2021-02-28 14:44] LABS: ABSOLUTE MONOCYTES 0.5 thou/uL (0.0-1.2); ABSOLUTE NEUTROPHILS 5.5 thou/uL (1.6-8.1); BASOPHILS 0.3 %; EOSINOPHILS 0.5 %; HEMATOCRIT 32.4 % (37.0-47.0); LYMPHOCYTES 24.9 %; MCH 30.6 pg (26.0-34.0); MCHC 33.8 g/dL (28.0-37.0); MCV 90.5 fL (80.0-100.0); MONOCYTES 6.6 %; MPV 7.2 fl. (7.2-11.1); NUCLEATED RBCS 0 /100WBC; PLATELET COUNT* 351 thou/uL (150-400); POLYS 67.7 %; RBC 3.58 mil/uL (4.20-5.00); RDW-CV 14.5 % (10.5-14.5); WBC 8.1 thou/uL (4.0-11.0)
[2021-02-28 14:55] LABS: APTT 23.5 Seconds (25.0-31.3); CALCIUM 9.1 mg/dL (8.5-10.1); CREATININE 0.6 mg/dL (0.6-1.3); POTASSIUM 3.9 mmol/L (3.5-5.1); PROTIME 10.2 Seconds (9.20-11.50)
[2021-02-28 15:20] LABS: ALBUMIN 3.4 g/dL (3.4-5.0); TOTAL BILIRUBIN 0.6 mg/dL (<0.1-1.0); TOTAL PROTEIN 7.5 g/dL (6.4-8.2)
[2021-02-28] MEDS ORDERED: EFFIENT10 MG PO (16:19)
--- NOTE | 2021-02-28 17:03 | EKG ---
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
[2021-02-28 17:18] VITALS: BP 134/63
[2021-02-28 17:30] VITALS: BP 152/67
--- NOTE | 2021-02-28 19:06 | NUR ---
RECEIVED REPORT AT BEDSIDE FROM ER,RN. PT ARRIVED ON UNIT AT 1730. IV INTACT RIGHT FOREARM. HEART MONITOR ATTACHED AT SR. PT SAT UP FOR WHILE IN CHAIR. LYING IN BED. PT BROKE LEG THIS PAST SEPTEMBER. FALL BRACELET PLACED ON PT. UP STAND BY ASSIST. MEDS GIVEN PER JAN. HOURLY ROUNDING PERFORMED. ADMIT DONE IN CHAIR. VS STABLE. PT SAID CHEST PAIN A "1/2 A 1". NPO AT MIDNIGHT. NO CAFFIENE,TEA,CHOCOLATE,COFFEE. CALL LIGHT WITHIN REACH. WILL CONTINUE TO MONITOR.
[2021-02-28 19:25] VITALS: BP 160/71
[2021-03-01 00:08] VITALS: BP 122/62
--- NOTE | 2021-03-01 03:55 | NUR ---
ASSUMED CARE OF PT AT 1900. PT IS ALERT AND OREINTED. TERRIE. PT REPORTED CHEST PAIN AT THE BEGINNING OF THE SHIFT. PT RECIEVED MORPHINE. PT IS NPO FOR CARDIOLOGY. PT IS SINUS RYTHM ON THE TELEMETRY. PT IS RESTING COMFORTABLY IN BED. RESPIRATIONS ARE EVEN AND NONLABORED. WILL CONTINUE TO MONITOR PT.
[2021-03-01 04:15] VITALS: BP 144/74
[2021-03-01 08:00] VITALS: BP 141/67
--- NOTE | 2021-03-01 11:52 | NUR ---
Pt is A&O. Resides at home with . Independent. Pt uses a cane for mobility. Hx of [facility] HH. No hx of SNF. Pt to have stress test today. Anticipate dc to home tomorrow, no needs anticipated.
[2021-03-01 12:06] VITALS: BP 145/55
--- NOTE | 2021-03-01 13:15 | NUR ---
ASSUMED PT CARE AT 0730, PT AOX4, C/O HEADACHE TREATED W/ TYLENOL W/ SOME RELIEF. PT ALLOWED TO EAT BREAKFAST PER STRESS LAB BUT NOW NPO AGAIN FOR STRESS TEST THIS AFTERNOON. PT GOAL IS TO COMPLETE STRESS TEST AND SEE IF FURTHER INTERVENTION IS NECESSARY. MEDS PER JAN, HOURLY ROUNDING OBSERVED, FALL PRECAUTIONS IN PLACE, CALL LIGHT W/IN REACH. PT ASKED TO NOT BE SBA, EXPLAINED WHY FALL PRECAUTIONS ARE NECESSARY.
--- NOTE | 2021-03-01 16:04 | EXE ---
[place] [address] STRESS ECHOCARDIOGRAM Name: ZIGGYKADYMIRIAM Tammy Room: [address] IN M.R.#: [id number] Admission: 02/28/21 Attend Phys: Sergei Chambers, Discharge: Date of : 50 Date of Service: 03/01/21 1604 Report #: [id number] THIS REPORT FOR: cc: [facility] - Clinic physician unknown [facility] - Clinic physician unknown Cruz Tripathi MD [facility] ~ APPROVED REPORT Study performed: 03/01/2021 14:57:27 Exam: Dobutamine Stress Echo Indication: CAD Patient Location: In-Patient Stress Nurse: Zahra Summers RN Room #: 215 Supervising Physician: Cruz Tripathi MD Ht: 5 ft 2 in HR: 67 bpm BP: 164/75 mmHg Medical History Cardiac Risk Factors: Hyperlipidemia, DM Procedure The patient underwent a Pharmacological Stress Test using Dobutamine. Blood pressure, heart rate, and EKG were monitored. An Echocardiogram was performed by laboratory mechanical technician in four stages in quad fashion. At peak stress, four selected images were obtained and placed side by side with resting images for comparison. Stress Test Details Stress Test: Pharmacological Stress Test using Dobutamine. Reason for pharmacologic stress test: physical limitation. HR Resting HR: 67 bpm Max Heart Rate (APMHR): 150 bpm Max HR Achieved: 150 bpm Target HR (85% APMHR): 127 bpm % of APMHR: 100 Recovery HR: 90 bpm HR response to stress: Normal HR response to stress BP Resting BP: 164/75 mmHg Max BP: 203/[address] [address] STRESS ECHOCARDIOGRAM Name: MIRIAM CHARLES Tammy Room: [address]#: [id number] Admission: 02/28/21 Attend Phys: Sergei Chambers, Discharge: Date of : 50 Date of Service: 03/01/21 1604 Report #: [id number] Recovery BP: 168/87 mmHg BP response to stress: Normal blood pressure response to stress. ECG Resting ECG: Sinus Rhythm Stress ECG: Sinus Rhythm, nonspecific ST-T abnormalities ST Change: Upsloping ST depression Maximum ST Deviation: 0.5 mm Arrhythmia: None Recovery ECG: Sinus Rhythm Recovery ST Change: None Recovery ST Deviation: 0 mm Recovery Arrhythmia: None Clinical Reason for Termination: Completed protocol Pre-Stress Echo The resting Echocardiogram showed normal left ventricular contractility with an estimated Ejection Fraction of about 60-65%. Post-Stress Echo The stress Echocardiogram showed normal left ventricular contractility with an estimated Ejection Fraction of about 65-70%. Compared to rest, there were no stress-induced wall motion abnormalities. Conclusion Clinical Response: Equivocal Stress ECG Response: Equivocal Stress Echo Images: Non-ischemic low risk dobutamine stress echo for predicting future cardiac events Other Information Study Quality: Good <Conclusion> low risk dobutamine stress echo for predicting future cardiac events <ELECTRONICALLY SIGNED> By: Cruz Tripathi MD, [facility] 03/01/21 1604 1604 1604 Cruz Tripathi MD, FAC /INF
[2021-03-01 19:40] VITALS: BP 140/65
[2021-03-02 00:19] VITALS: BP 155/51
--- NOTE | 2021-03-02 03:12 | NUR ---
ASSUMED CARE OF PT AT 1900. PT IS ALERT AND ORIENTED. VSS. PERRLA. NO COMPLAINTS OF PAIN. PT IS IN SINUS RYTHM ON THE TELEMETRY. PT IS RESTING COMFORTABLY IN BED. RESPIRATIONS ARE EVEN AND NONLABORED. WILL CONTINUE TO MONITOR PT.
[2021-03-02 04:22] LABS: HEMATOCRIT 30.9 % (37.0-47.0); HEMOGLOBIN 10.6 gm/dL (12.0-15.0); MCH 30.7 pg (26.0-34.0); MCHC 34.2 g/dL (28.0-37.0); MCV 89.9 fL (80.0-100.0); MPV 7.2 fl. (7.2-11.1); RBC 3.43 mil/uL (4.20-5.00); RDW-CV 14.3 % (10.5-14.5); WBC 5.3 thou/uL (4.0-11.0)
[2021-03-02 04:32] VITALS: BP 137/62
[2021-03-02 04:51] LABS: CALCIUM 8.8 mg/dL (8.5-10.1); CREATININE 0.5 mg/dL (0.6-1.3); POTASSIUM 3.6 mmol/L (3.5-5.1)
[2021-03-02 07:49] VITALS: BP 149/66
--- NOTE | 2021-03-02 09:05 | NUR ---
ASSUMED CARE OF PT THIS AM AROUND 0715- AROMATHERAPIST IN PLACE ORDERED, TRACING SR- UPON ASSESSMENT PT NOTED TO BE RESTING IN BED- PT A&O X4- CONT OF B/B- SBA WTITH CANE FOR TRANSFERS- LCTA/DIMINISHED IN BASES- VSS, O2 SAT 100% ON RA- ABD SOFT/ROUND/NON-TENDER, BS X4 QUADS- LAST BM REPORTED 03/01/21- IV NOTED TO RIGHT FA INTACT AND SL- PT CURRENLTY NPO FOR PLANNED PIPIDA SCAN- D/C PENDING PIPIDA SCAN- PT DENIES ANY C/O PAIN/DISCOMFORT AT THIS TIME- CALL LIGHT AND PERSONAL BELONGINGS WITH IN REACH- HOURLY ROUNDS IN PLACE R/T SAFETY/NEEDS- ALL NEEDS MET AT THIS TIME
--- NOTE | 2021-03-02 10:54 | CON ---
[address] [address] CONSULTATION Name: MIRIAM CHARLES Room: [address] IN M.R.#: [id number] Admission: 02/28/21 Attend Phys: Sergei Chambers MD Discharge: Date of : 50 Report #: [id number] THIS REPORT FOR: cc: [facility] - Clinic physician unknown [facility] - Clinic physician unknown Cruz Tripathi MD [facility] ~ DATE OF SERVICE: 03/01/2021 CARDIOLOGY CONSULTATION HISTORY OF PRESENT ILLNESS: The patient is a 70-year-old female who I was asked to see in the hospital after she complained of chest pain. The patient has an extensive past medical history. She initially complained a year ago of back pain. She was admitted here to [facility] and Dr. Cutler placed a stent in the mid LAD. Echocardiogram at that time showed normal left ventricular function. She has done well since that time. She was actually admitted here to [facility] on 02/18 ten days ago when she felt a pain in her back, felt nauseated, vomited, diaphoretic. She is admitted for further evaluation and treatment. She ruled out for myocardial infarction. Dr. Cutler performed repeat cardiac catheterization on 02/20 from the femoral artery. This showed 90% in-stent restenosis. No significant disease in the circumflex or right coronary artery. Ejection fraction 65%. She was then given Angiomax and Dr. Cutelr placed another drug-eluting stent in her LAD. She was placed back on Effient, which she had been taken off of in the past. She was just discharged a week ago. Since that time, she is not very active, but she has been working out at home. She was at [facility] yesterday when she had a pain in her back. It went in her shoulder. She did note some chest discomfort. Took a nitroglycerin, did not really seem to help. She denied any nausea, diaphoresis, or shortness of breath. Denied any fever or cough. She denied any belching or blood in her stool. Denied any trauma to her chest. She had no rash. Her brought her into the Emergency Room and she was admitted for further evaluation and treatment. She denied the pain being worse with a deep breath. She denied the pain being worse when she bent over. PAST MEDICAL HISTORY: She has had previous hysterectomy, knee surgery. She did note that in September, she fell and fractured her leg requiring surgery at [facility]. She does have a history of hypertension, diabetes or hyperlipidemia. CURRENT MEDICATIONS: Consist of Effient, Synthroid, aspirin, Lipitor, metformin, carvedilol, benazepril. ALLERGIES: SHE HAS A PREVIOUS INT[place]ERANCE [place] [id number] CONSULTATION Name: MIRIAM CHARLES Room: [address] IN ..#: [id number] Admission: 02/28/21 Attend Phys: Sergei Chambers MD Discharge: Date of : 50 Report #: [id number] FAMILY HISTORY: Mother had bypass surgery. SOCIAL HISTORY: She is . She and her live in [place]. She has no history of alcohol in excess. She has no history of smoking. REVIEW OF SYSTEMS: No history of stroke, asthma, liver disease, kidney disease, cancer or skin problems, psychiatric illness. She does wear glasses. PHYSICAL EXAMINATION: GENERAL: Elderly female lying in bed. She appeared in no distress. VITAL SIGNS: She had a blood pressure of 130/70, pulse is 70. She is afebrile. HEENT: She was anicteric. Conjunctivae pink. Mucous membranes are moist. NECK: Veins nondistended. No carotid bruits. Neck supple. CHEST: Clear to auscultation. CARDIOVASCULAR: Regular rate and rhythm without murmur or rub. ABDOMEN: Soft. EXTREMITIES: Had no edema. Dorsalis pedis pulse 2+. SKIN: Cool and dry. NEUROLOGIC: Nonfocal. Her ECG in the Emergency Room yesterday showed a sinus rhythm. There was no ST- or T-wave change noted. Her chest x-ray in the Emergency Room yesterday showed normal heart size, clear lung beltran. She actually had a CT scan of the chest using a PE protocol that showed no pulmonary embolus or acute process. LABORATORY WORK: Potassium 3.9, creatinine 0.6. Liver function studies were normal. Troponins were all less than 0.06. Lipid profile last week, cholesterol 106, triglycerides 84, HDL 57, LDL 39. TSH 1.8. White blood cell count 8.1, hematocrit 32.4. IMPRESSION AND RECOMMENDATIONS: 1. Back pain. Atypical for angina. There was acute coronary syndrome. Recommend dobutamine echocardiogram. 2. Recent stent. Continue aspirin and Plavix. 3. Hypertension. The patient is on a beta-main and NICOLE inhibitor. 4. Diabetes. 5. Hyperlipidemia. The patient is on a statin drug. <ELECTRONICALLY SIGNED> By: Cruz Tripathi MD, [facility] 03/02/21 [id number] Tripathi MD, FACC /nt
[2021-03-02 12:22] VITALS: BP 149/66
[2021-03-02 12:40] VITALS: BP 149/66
== END 2021-03-02 13:40 | disposition home or self-care (01) | DRG 392 ==
LOC: M.ERS 14:11 → M.TBA-ER 16:13 → M.2W 16:31
PROVIDERS: Family Medicine; Nurse Practitioner Family; ADMIT Internal Medicine; ATTEND Internal Medicine
DX: K21.00 Gastro-esophageal reflux disease with esophagitis, without bleeding (principal); I25.110 Atherosclerotic heart disease of native coronary artery with unstable angina pectoris; I24.9 Acute ischemic heart disease, unspecified; K82.8 Other specified diseases of gallbladder; Z96.652 Presence of left artificial knee joint; E11.9 Type 2 diabetes mellitus without complications; E03.9 Hypothyroidism, unspecified; E78.5 Hyperlipidemia, unspecified; E66.9 Obesity, unspecified; D64.9 Anemia, unspecified; Z20.822 Contact with and (suspected) exposure to COVID-19; Z90.49 Acquired absence of other specified parts of digestive tract; Z90.711 Acquired absence of uterus with remaining cervical stump; Z95.5 Presence of coronary angioplasty implant and graft; Z88.8 Allergy status to other drugs, medicaments and biological substances; Z68.30 Body mass index [BMI] 30.0-30.9, adult; Z79.82 Long term (current) use of aspirin; Z79.899 Other long term (current) drug therapy

== ENCOUNTER → 2021-12-20 | Outpatient (CLI) | payer MEDICARE ==
--- NOTE | 2021-12-20 18:30 | CARDNUC ---
[place] [address] CARDIAC NUCLEAR IMAGING REPORT Name: MIRIAM CHARLES Room: [facility]#: [id number] Admission: 12/20/21 Attend Phys: Tammy Michelle Discharge: Date of : 50 Date of Service: 12/20/21 1829 Report #: [id number] THIS REPORT FOR: cc: Jenifer George MD, Lin W. MD Liston, Michael J. MD [facility] ~ APPROVED REPORT Study performed: 12/20/2021 10:56:29 Indication: CAD s/p PCI Patient Location: Out-Patient Stress Nurse: Zahra Summers RN Ht: 5 ft 1 in Wt: 162 lbs BSA: 1.73 m2 BMI: 30.60 Medical History Medical History: CAD s/p stent, Diabetes, HTN, Hyperlipidemia Medications: ASA, ATORVASTATIN, CARVEDILOL, LISINOPRIL, NTG, PRASUGREL Allergies: No known drug allergies Cardiac Risk Factors: Age, DM, HTN, Hyperlipidemia Previous Cardiac Procedures: PCI Exercise History: Indeterminate Meds Held (24 hrs): CARVEDILOL Resting Data Rest SPECT myocardial perfusion imaging was performed in supine position 30 minutes following the intravenous injection of 10.1 mCi of Tc-99m Sestamibi. Time of rest injection: 09:45 The images were gated to evaluate regional wall motion and calculate left ventricular ejection fraction. Administration Route: IV Administration Site: Left AC Pharmacologic Stress Pharmacologic stress test was performed by injecting Regadenoson 0.4 mg IV push over 10-15 seconds immediately followed by the intravenous injection of 34.9 mCi of Tc-99m Sestamibi. Time of stress injection: 10:55 Administration Route: [place] [address] CARDIAC NUCLEAR IMAGING REPORT Name: MIRIAM CHARLES Room: [facility]#: [id number] Admission: 12/20/21 Attend Phys: Tammy Michelle Discharge: Date of : 50 Date of Service: 12/20/21 1829 Report #: [id number] Administration Site: Right AC Heart Rate at time of stress injection: 114 bpm. Gated Stress SPECT was performed 45 minutes after stress injection. The images were gated to evaluate regional wall motion and calculate left ventricular ejection fraction. Prone imaging was performed. Stress Test Details Stress Test: Pharmacologic stress testing performed using 0.4 mg of regadenoson per 5 mL given IV over 10 seconds. Reason for pharmacologic stress test: physical limitation. HR Max Heart Rate (APMHR): 149 bpm Resting HR: 66 bpm Target HR (85% APMHR): 126 bpm Max HR Achieved: 114 bpm % of APMHR: 76 Recovery HR: 85 bpm BP Resting BP: 154/95 mmHg Max BP: 156/81 mmHg Recovery BP: 157/82 mmHg ECG Resting ECG: Sinus Rhythm Stress ECG: Sinus Tachycardia ST Change: None Arrhythmia: None Recovery ECG: Sinus Rhythm Recovery ST Change: None Recovery Arrhythmia: None Clinical Reason for Termination: Completed protocol The patient tolerated Lexiscan infusion without significant cardiac symptoms. Stress ECG Conclusion The baseline twelve-lead EKG shows sinus rhythm without significant ST segment or T wave abnormality. EKGs obtained during and post Lexiscan infusion show sinus rhythm and sinus tachycardia with no significant ST segment or T wave changes when compared to baseline. There were no stress-induced arrhythmias. Study Quality Study: [place] [address] CARDIAC NUCLEAR IMAGING REPORT Name: MIRIAM CHARLES Room: [facility]#: [id number] Admission: 12/20/21 Attend Phys: Tammy Michelle Discharge: Date of : 50 Date of Service: 12/20/21 1829 Report #: [id number] Artifact: No artifact Study Data At rest, the left ventricular ejection fraction was 77%.. Post stress, the left ventricular ejection was 73%.. TID = 1.06. Perfusion Perfusion images obtained at rest and post Lexiscan stress show uniform uptake of the radioisotope throughout the myocardium. There were no defects to suggest infarct or ischemia. Wall Motion Normal left ventricular wall motion. Nuclear Conclusion ECG Findings: negative for ischemia Clinical Findings: negative for ischemia Nuclear Findings: negative for ischemia Exercise Capacity: not assessed Left Ventricular Function: normal Risk Study: low Perfusion images show no defect to suggest infarct or ischemia. Left ventricular systolic function is normal on gated studies. This is a low risk study. <Conclusion> The baseline twelve-lead EKG shows sinus rhythm without significant ST segment or T wave abnormality. EKGs obtained during and post Lexiscan infusion show sinus rhythm and sinus tachycardia with no significant ST segment or T wave changes when compared to baseline. There were no stress-induced arrhythmias. <ELECTRONICALLY SIGNED> By: Real Cochran MD, FACC 12/20/211828 28 28 Real Cochran MD, FACC /INF
== END ==
LOC: M.NUC 08:00 → M.CRD 09:00 → M.NUC 09:16
PROVIDERS: ATTEND Internal Medicine
DX: I25.10 Atherosclerotic heart disease of native coronary artery without angina pectoris (principal); Z95.5 Presence of coronary angioplasty implant and graft